=== PATIENT | male | born 1975 ===

== ENCOUNTER 2016-07-31 20:31 | Emergency (ER) | payer SELFPAY ==
[2016-07-31 20:50] VITALS: BP 142/91; PULSE 73; RESP 16; TEMP 98; O2SAT 100
--- NOTE | 2016-07-31 21:12 | ED PDOC ---
HPI: Eye Injury/Pain Time Seen by Provider: 07/31/16 21:00 Chief Complaint (Nursing): Eye Problem Chief Complaint (Provider): right eye injury History Per: Patient History/Exam Limitations: no limitations Onset/Duration Of Symptoms: Hrs Current Symptoms Are (Timing): Still Present Injury To Eye?: Yes Quality: "Pain" Wears Contact Lens?: No Associated Symptoms: Pain, FB Sensation, Discharge From Eye. denies: Decreased Vision Additional Complaint(s): The pt is a 41yo male, presents to the ED for evaluation of right eye pain since earlier today. Pt reports he was doing metalwork earlier today and feels as if a piece of metal went in his eye, pt reports foreign body sensation. Pt reports redness, watery eye and pain. he denies any vision changes, photophobia , blurry vision, headaches. he denies any contact lens use. Pt offers no additional medical complaints. Past Medical History Reviewed: Historical Data, Nursing Documentation, Vital Signs Vital Signs: Last Vital Signs Temp 98.0 F 07/31/16 20:46 Pulse 73 07/31/16 20:46 Resp 16 07/31/16 20:46 BP 142/91 H 07/31/16 20:46 Pulse Ox 100 07/31/16 20:46 - Medical History PMH: No Chronic Diseases - Surgical History Surgical History: No Surg Hx - Family History Family History: States: Unknown Family Hx - Social History Current smoker - smoking cessation education provided: No Alcohol: None Drugs: Denies - Immunization History Hx Tetanus Toxoid Vaccination: No Hx Influenza Vaccination: No Hx Pneumococcal Vaccination: No - Home Medications Home Medications: Ambulatory Orders Medication Instructions Recorded Naproxen [Naprosyn] 1 tab PO BID PRN #25 tab 07/05/14 Penicillin VK [Pen-Vee K] 1 tab PO TID #30 tab 07/05/14 Azithromycin [Zithromax Z-Jarrett] 250 mg PO DAILY #1 packet 04/15/15 Ibuprofen [Motrin] 600 mg PO Q6 PRN #15 tab 04/15/15 Polymyxin/Trimethoprim Sulfate 100 drop OD BID #1 bottle 07/31/16 [Polytrim Ophth Soln] - Allergies Allergies/Adverse Reactions: Allergies Allergy/AdvReac Type Severity Reaction Status Date / Time No Known Allergies Allergy Verified 07/31/16 20:45 Review of Systems ROS Statement: Except As Marked, All Systems Reviewed And Found Negative Eyes: Positive for: Pain, Redness. Negative for: Vision Change Neurological: Negative for: Headache Physical Exam - Reviewed Nursing Documentation Reviewed: Yes Vital Signs Reviewed: Yes - Physical Exam Appears: Positive for: Well, Non-toxic, No Acute Distress Head Exam: Positive for: ATRAUMATIC, NORMAL INSPECTION, NORMOCEPHALIC Skin: Positive for: Normal Color, Warm, DRY Eye Exam: Positive for: EOMI, PERRL, Other ((-) lid inversion; (-) hyphema ;(+) subconjunctival hemorrhage right eye; 1mm corneal abrasion noted ) Neck: Positive for: Normal, Supple Cardiovascular/Chest: Positive for: Regular Rate, Rhythm Respiratory: Negative for: Respiratory Distress Neurologic/Psych: Positive for: Alert, Oriented - ECG O2 Sat by Pulse Oximetry: 100 (RA) Pulse Ox Interpretation: Normal Medical Decision Making Medical Decision Making: Time: 2109 Impression: Right eye injury Plan: -- Eye exam using tetracaine. -- 1mm abrasion noted on right cornea. Pt to be d/c home with Rx eye drops, and instructions for eye care. Pt informed to follow up with group marketing vp if symptoms persist after 1 week. Scribe Attestation: Documented by Angie Garcia acting as a scribe for DANN Eric Provider Attestation: All medical record entries made by the Scribe were at my direction and personally dictated by me. I have reviewed the chart and agree that the record accurately reflects my personal performance of the history, physical exam, medical decision making, and the department course for this patient. I have also personally directed, reviewed, and agree with the discharge instructions and disposition. Disposition - Clinical Impression Clinical Impression: Corneal abrasion - Patient ED Disposition Is Patient to be Admitted: No Counseled Patient/Family Regarding: Diagnosis, Need For Followup, Rx Given - Disposition Disposition: Routine/Home Disposition Time: 12:37 Condition: STABLE Prescriptions: Polymyxin/Trimethoprim Sulfate [Polytrim Ophth Soln] 100 drop OD BID #1 bottle Instructions: Corneal Abrasion (ED) Forms: [facility] ED School/Work Excuse Print Language: ENGLISH
== END 2016-07-31 21:43 | disposition home or self-care (01) ==
LOC: H.ER 20:31
DX: T15.01XA Foreign body in cornea, right eye, initial encounter (principal); Y92.89 Other specified places as the place of occurrence of the external cause

== ENCOUNTER 2017-07-15 22:13 | Emergency (ER) | payer SELFPAY ==
[2017-07-15 22:21] VITALS: O2SAT 98
--- NOTE | 2017-07-15 22:49 | ED PDOC ---
HPI: CCC, URI, Sore Throat Time Seen by Provider: 07/15/17 22:46 Chief Complaint (Nursing): ENT Problem Chief Complaint (Provider): sore throat History Per: Patient Additional Complaint(s): 42-year-old male presents with sore throat 1 week. Patient was seen at [facility] last week and was given prescriptions for Motrin and Flexeril for lower back pain but states he is not given any medication to treat throat pain. He denies any fever or chills but has pain when swallowing and has noticed white patches on tonsils. He denies coughing, congestion, nausea or vomiting. PMD: none Past Medical History Reviewed: Historical Data, Nursing Documentation, Vital Signs Vital Signs: Last Vital Signs Temp 98.5 F 07/15/17 22:18 Pulse 77 07/15/17 22:18 Resp 18 07/15/17 22:18 BP 152/87 H 07/15/17 22:18 Pulse Ox 98 07/15/17 22:49 - Medical History PMH: No Chronic Diseases - Surgical History Surgical History: No Surg Hx - Family History Family History: States: No Known Family Hx - Living Arrangements Living Arrangements: With Family - Social History Current smoker - smoking cessation education provided: No Alcohol: None Drugs: Denies - Home Medications Home Medications: Ambulatory Orders Medication Instructions Recorded Naproxen [Naprosyn] 1 tab PO BID PRN #25 tab 07/05/14 Penicillin VK [Penicillin VK Tab] 1 tab PO TID #30 tab 07/05/14 Azithromycin [Zithromax Z-Jarrett] 250 mg PO DAILY #1 packet 04/15/15 Ibuprofen [Motrin] 600 mg PO Q6 PRN #15 tab 04/15/15 Polymyxin/Trimethoprim Sulfate 100 drop OD BID #1 bottle 07/31/16 [Polytrim Ophth Soln] Amoxicillin/Clavulanate [Augmentin 1 tab PO BID #14 tab 07/15/17 875 MG-125 MG] - Allergies Allergies/Adverse Reactions: Allergies Allergy/AdvReac Type Severity Reaction Status Date / Time No Known Allergies Allergy Verified 07/31/16 20:45 Review of Systems ROS Statement: Except As Marked, All Systems Reviewed And Found Negative Constitutional: Negative for: Fever, Chills ENT: Positive for: Throat Pain, Throat Swelling Cardiovascular: Negative for: Chest Pain Respiratory: Negative for: Cough Gastrointestinal: Negative for: Nausea, Vomiting Physical Exam - Reviewed Nursing Documentation Reviewed: Yes Vital Signs Reviewed: Yes - Physical Exam Appears: Positive for: Well, Non-toxic, No Acute Distress Skin: Positive for: Normal Color. Negative for: Rash Eye Exam: Positive for: Normal appearance ENT: Positive for: Pharyngeal Erythema, Tonsillar Exudate, Tonsillar Swelling Cardiovascular/Chest: Positive for: Regular Rate, Rhythm Respiratory: Positive for: Normal Breath Sounds Extremity: Positive for: Normal ROM Lymphatic: Positive for: Adenopathy (Bilateral anterior cervical lymphadenopathy ) Neurologic/Psych: Positive for: Alert, Oriented - ECG O2 Sat by Pulse Oximetry: 98 Pulse Ox Interpretation: Normal Medical Decision Making Medical Decision Makin-year-old male with tonsillitis. Patient medicated with Decadron IM in ED Throat culture sent Patient has prescription for ibuprofen was advised to continue taking this medication. Prescription given for Augmentin. Patient was referred to clinic for follow up. Disposition - Clinical Impression Clinical Impression: Tonsillitis - Patient ED Disposition Is Patient to be Admitted: No Counseled Patient/Family Regarding: Studies Performed, Diagnosis, Need For Followup, Rx Given - Disposition Referrals: [facility] [Outside] Disposition: Routine/Home Disposition Time: 23:07 Condition: STABLE Additional Instructions: Continue with ibuprofen for pain. Take prescription meds as directed. Drink plenty of fluids. Follow-up with clinic in 2-3 days. Prescriptions: Amoxicillin/Clavulanate [Augmentin 875 MG-125 MG] 1 tab PO BID #14 tab Instructions: Sore Throat, Adult (DC) Forms: [employer] (Frisian) Print Language: ROMANIAN
[2017-07-15] MEDS ORDERED: Dexamethasone 4 mg/1 ml IM STA (23:04)
[2017-07-15 23:53] VITALS: BP 119/78; PULSE 78; RESP 20; TEMP 98.1
== END 2017-07-15 23:52 | disposition home or self-care (01) ==
LOC: H.ER 22:13
DX: J03.90 Acute tonsillitis, unspecified (principal)
CPT/HCPCS: 87070; 96372; 99282; J1100